=== PATIENT | female | born 1980 | race Caucasian/White ===

== ENCOUNTER 2017-07-16 14:03 | Emergency (ER) | payer MEDICAID ==
[~2017-07-16] VITALS: Ht 167.6 cm; Wt 104.4 kg
--- NOTE | 2017-07-16 15:09 | [facility] Report ---
History of Present Issue Date/Time Seen by Provider 07/16/17 1430 Visit Reason Pt arrived:Walked Presenting Problem:PT C/O DIZZINESS, LIGHTHEADED, AND DECREASE IN APPETITE X1 WEEK Location if Accident: Onset of symptoms date/time:/ or onset unknown for:MEDICAL HX UNKNOWN Have you (or family members/close friends) recently traveled outside the [place]? N If Yes, where/when: Have you had exposure to infectious disease within the past month? TB? Other? Specify: c/o feeling lightheaded/dizzy intermittently x 1 week w/ less of an appetite "but I make myself eat". Denies vomiting. Episodes occurring 3-4 times a day, lasting 5-10 minutes, worse w/ head movement or when rolls over in bed although has happened even when sitting still. Described as "room spinning and I need to hold on". Improved w/ sitting still until passes. Hasn't taken or tried anything for symptoms. Denies ear pain or fullness. No change hearing. mother and grandmother w/ hx of vertigo. Pt thinks she has had it before and this might be similiar but has never taken meclizine that she can recall. Source patient Exam Limitations no limitations ALLERGIES Coded Allergies: No Known Allergies (07/03/16) Home Medications Active Scripts ONDANSETRON HCL (Zofran 4MG Tab) 4 MG PO Q8HP PRN NAUSEA AND VOMITING #9 TAB Prov: 12/21/16 Naproxen 375 MG PO BID #28 TAB Prov: 01/09/17 History Medical History General CAD? No Angina: No [place]: No Hypertension? No Hyperlipidemia? No CHF? No DVT? No PE? No COPD? No Asthma? No Anemia? No GERD? No Gastric ulcers? No GI Bleed? No Hernia? No Thyroid Problems? No Hypothyroidism? No CVA? No Seizures? No Diabetes? No Insulin Dependent: No Insulin Pump: No Home FSBS? No Renal Insuffiency? No UTI? Yes Stones? No BPH? No GB Disease: No Nephritic Syndrome? No Asplenia? No Hepatitis? No Sickle Cell Disease? No Arthritis? No Migraines? No Cataracts? No Glaucoma? No MRSA? No HIV? No TB? No Anxiety? No Depression? No Cancer? No More? No Immunization HX DT/Tetanus 1-4 Years Ago Flu [id number] Pneumonia Received In Past Surgical Hx Previous Surgery?Y CSECTION FEBRUARY 2012 RT. FOOT SURGERY X2 TUBAL Family History Family HX Diabetes Yes CAD No Hypertension Yes Hyperlipidemia Yes Cancer Yes TB No Social History Smoking Hx Smoker: Never Smoker Tobacco: No Alcohol Alcohol: No Review of Systems All Other Systems Reviewed and Negative Constitutional see HPI, denies fever, denies malaise Eyes see HPI, denies blindness, denies pain, denies vision change ENT see HPI, nose discharge ("always"). denies: ear discharge, nose congestion, throat pain. Respiratory denies shortness of breath Cardiovascular denies chest pain, denies palpitations Gastrointestinal see HPI Musculoskeletal denies other (no pain) Skin denies change in color, denies lesions, denies lumps Psychiatric/Neurological denies headache, denies numbness, denies tingling Physical Exam Vital Signs Vital Signs Date Time Temp Pulse Resp B/P Pulse O2 O2 Flow FiO2 Ox Delivery Rate 07/16 1653 99.0 98 16 /68 99 07/16 1652 99.0 98 16 99 07/16 1454 99.0 98 16 99 General Appearance no apparent distress, obese, unkept appearance Eye Exam - bilateral eye normal exam (x/ vertigo w/ EOM) Comment resolved w/ sitting still within 2 minutes; no nystagmus Ear, Nose, Throat normal ENT inspection (x/ mild nasal congestion) Neck non-tender, supple Respiratory Status No: respiratory distress, productive cough, non productive cough. Lung Sounds anterior: lungs clear. posterior: lungs clear. bilateral: lungs clear. 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 No Departure Departure Time of Disposition 1621 Disposition DC Home or Self Care(routine) Clinical Impression Primary Impression: Vertigo Condition STABLE Referrals NO REFERRAL FU w/ Dr. Martin. Call today and schedule FU appt. Return to ER/UTC for new or worsening symptoms. Patient Instructions DI for Vertigo Additional Instructions meclizine as needed for vertigo that doesn't resolve w/in minutes of sitting still. Will cause drowsiness. No driving after taking. Move slowly. Change positions slowly. Be sure to FU with primary care but to return for new or worsening symptoms. Discharge Counseling Counseled pt/family regarding diagnosis, medications/RX, home care, follow up needs Prescriptions Current Visit Scripts MECLIZINE HCL (Meclizine 25MG) 25 MG PO TIDP PRN vertigo #9 TABLET at 3995
[2017-07-16 16:53] VITALS: BP 112/68
--- OUTSIDE RECORDS SUMMARY | 2017-08-08 04:08 | External Medical Summary Rpt ---
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 [facility] 74160 [facility]. 4 4 [facility] VISIT LOW/MODER SEVERITY PERIODIC 17520 ST JOSE GRE PREVENTIV 4 4 GEN[facility] E MED EST PATIENT PHYSICIAN 18-39 YRS [facility] ST[facility] - 3 3 [facility] OUTPATIEN [facility] EMERGENCY 81842 ST. 3 3 GENNA [facility] VISIT MODERATE SEVERITY HOSPITAL ST - 3 3 [facility] OUTPATIEN [facility] CENTER OFFICE 26200 ST SARAH OUTPATIEN 3 3 GENNA TRO T VISIT 25 PHYSICIAN MINUTES S OFFICE 04[address] ST JOSE GRE OUTPATIEN 3 3 [facility] T VISIT 15 PHYSICIAN MINUTES [facility] ST[facility] - 2 2 [facility] OUTPATIEN EBONIE OFFICE 16176 ST JOSE GRE OUTPATIEN 2 2 GEN[facility] T VISIT 25 PHYSICIAN MINUTES [facility] SHIV - 2 2 [facility] OUTPATIEN [facility] SHIV - 2 2 [facility] OFF[facility] 51903 [facility] HARPEL OUTPATIEN 2 2 [place] T VISIT [address]ES [address] SARAH OUTPATIEN 2 2 GENNA TRO T VISIT 25 PHYSICIAN MINUTES S INITIAL [address] [facility] HARPEL PREVENTIV 2 2 PHYSICIAN DARLING E GROUP MEDICINE PCC NEW PT AGE 18-39YRS [facility] ST - 2 2 GENNA OUTPATIEN T MEDICALCE NTER OFFICE 04589 ST OUTPATIEN 2 2 GENNA T VISIT 5 MINUTES MEDICALCE NTER OFFICE 40491 ST JOSE GRE OUTPATIEN 2 2 GEN[facility] T VISIT 15 PHYSICIAN [address] [facility] [address] - 2 2 [facility] INPATIENT MEDICALCE NTER OFFICE 71755 [facility] OUTPATI[facility] 2 2 POINT T VISIT FAMILY 15 CARE, IN MINUTES OFFICE 82476 ST JOSE GRE OUTPATIEN 2 2 GENNA T VISIT 15 PHYSICIAN MINUTES S OFFICE 85672 [facility] OUT[facility] 2 2 POINT T VISIT FAMILY 15 CARE, IN MINUTES OFFICE 70304 [facility] OUTPATIEN 2 2 POINT T VISIT FAMILY 15 CARE, IN MINUTES OFFICE 23753 [facility] OUTPATIEN 2 2 POINT T VISIT FAMILY 15 CARE, IN MINUTES OFFICE 46679 [facility] OUTPATIEN 2 2 POINT RASHMI T VISIT FAMILY 15 CARE, IN MINUTES OFFICE 81815 [facility] OUTPATIEN 2 2 POINT T VISIT FAMILY 15 CARE, IN MINUTES OFFICE 49061 [facility] OUTPATIEN 2 2 POINT T VISIT FAMILY 15 CARE, IN MINUTES HOSPITAL ST - 2 2 [facility] OUTPATIEN T MEDICALCE NTER OFFICE 32024 [facility] OUTPATIEN 1 1 POINT T VISIT FAMILY 25 CARE, IN MINUTES HOSPITAL ST - 1 1 [facility] OUTPATIEN MED CTR 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 1 1 [facility] DEPARTMEN EBONIE T VISIT HIGH/URGE NT SEVERITY EMERGENCY 97695 WANDA MUÑOZ 1 1 EDW EDW DEPARTMEN T VISIT MODERATE SEVERITY HOSPITAL ST. - 1 1 [facility] OUTPATIEN EBONIE T OFFICE 46465 ST JOSE MITCHELL OUTPATIEN 1 1 GEN[facility] T VISIT 15 PHYSICIAN MINUTES [facility] ST - 1 1 [facility] EDEPATIEN T MEDICALCE NTER EMERGENCY 88148 ST. 1 1 [facility] DEPARTMEN EBONIE T VISIT HIGH/URGE NT SEVERITY EMERGENCY 99714 [facility] DANAE DEPARTMEN MED CTR T VISIT MODERATE SEVERITY HOSPITAL ST. - 1 1 [facility] OUTPATIEN EBONIE T HOSPITAL ST. - 1 1 [facility] OUTPATIEN EBONIE T EMERGENCY 81753 ST. 1 1 [facility] DEPARTMEN EBONIE T VISIT MODERATE SEVERITY EMERGENCY 98874 ST BOYLE 1 1 [facility] PAULA DEPARTMEN MED CTR T VISIT HIGH/URGE NT SEVERITY EMERGENCY 96474 ST. 1 1 [facility] T VISIT MODERATE SEVERITY HOSPITAL ST[facility] - 1 1 [facility] T OFFICE 92101 [facility] [address] [facility] T VISIT 15 PHYSICIAN MINUTES S OFFICE 69240 [facility], OUTPATIEN 0 0 [facility] CHRISTY T T VISIT GROUP 15 MINUTES OFFICE 74424 [facility], OUTPATIEN 9 9 [facility] T T VISIT GROUP 15 MINUTES OFFICE 82667 [facility], OUTPATIEN 9 9 [facility] T T VISIT GROUP [address] - [address] [place] OFF[facility] 50992 [facility], [facility] 9 9 MEDICAL JHON T VISIT GROUP 15 MINUTES OFFICE 69213 [facility], OUTPATIEN 9 9 [facility]ST[facility] T T VISIT GROUP 15 MINUTES OFFICE 94283 [facility], OUTPATIEN 9 9 MEDICAL CHRISTY T T VISIT GROUP 15 MINUTES EMERGENCY 26665 [facility], 9 9 [place] [facility] MED CTR T VISIT HIGH/URGE NT SEVERITY EMERGENCY 08407 ST 9 9 [place] T VISIT MODERATE SEVERITY HOSPITAL ST - 9 9 [place] T [facility] 29298 [facility] 9 9 MEDICAL JHON T VISIT GROUP 25 MINUTES OFFICE 77440 [facility], OUTPATIEN 8 8 [facility]STY T T VISIT GROUP 15 MINUTES OFFICE 94688 [facility] OUTPATIEN 8 8 [facility] CHRISTY T T VISIT GROUP 15 MINUTES EMERGENCY [address]473 [place] [address] 8 [facility] HIGH/URGE NT SEVERITY EMERGENCY 02248 8 [address] [place] T VISIT MODERATE SEVERITY HOSPITAL ST 8 8 [place] T EMERGENCY 41353 8 [address] [place] T VISIT MODERATE SEVERITY EMERGENCY 23804 [place] [address] 8 [facility] MED CTR [facility] T VISIT E D HIGH/URGE NT SEVERITY HOSPITAL - 8 [address] [place] T
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
--- OUTSIDE RECORDS SUMMARY | 2017-08-08 04:11 | External Medical Summary Rpt ---
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 [facility] T VISIT MODERATE SEVERITY OFFICE 92107 [facility], OUTPATIEN 9 9 MEDICAL JHON T VISIT GROUP 25 MINUTES OFFICE 67304 [facility], OUTPATIEN 8 8 [facility] T T VISIT GROUP 15 MINUTES OFFICE 91634 [facility] 8 8 MEDICAL [facility]RISTY T T VISIT GROUP 15 MINUTES EMERGENCY 15031 8 8 [facility] T VISIT MODERATE [facility]VERITY [facility]PITAL ST - [address] [facility] T EMERGENCY 31[address] [facility], [address] [facility] MED CTR T VISIT HIGH/URGE NT SEVERITY HOSPITAL - [address] [facility] T EMERGENCY 60832 8 8 [facility] T VISIT MODERATE SEVERITY EMERGENCY 67721 [facility], 8 8 [facility] MED CTR NESTOR T VISIT E D HIGH/URGE NT SEVERITY
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
--- OUTSIDE RECORDS SUMMARY | 2017-08-08 04:12 | External Medical Summary Rpt ---
Demographics Preferred Language Burmese Marital Status Unknown Religion Affiliation Unknown Race Unknown Ethnic Group Unknown Author Author VENKAT Address Unknown Phone Immunization No patient found.
--- OUTSIDE RECORDS SUMMARY | 2017-08-08 04:12 | External Medical Summary Rpt ---
Author Author [place], [employer] Organization [employer] Address Unknown Phone Unavailable Results B.pert PCR Observa Value Referen Units Interpr Notes Date tion ce etation Range Bordete Positiv No No Abnorma TEST Dec 5 lla e informa informa l INFORMA 2016 pertuss tion in tion in TION: 2:07 PM is PCR source source This data data assay qualita tively detects a DNA element of Bordete lla pertuss is from nasal pharyng eal swabs. This assay may also detect Bordete lla holmesi i and Bordete lla brochis eptica. \.br\\. br\This assay is an FDA approve d amplifi ed DNA test by [facility] and its perform ance has been verifie d by the [facility]. A negativ e result does not rule out the presenc e of the Bordete lla pertuss is in concent rations below the limit of detecti on for the assay. POC UA Observa Value Referen Units Interpr Notes Date tion ce etation Range UA Yellow No No No No Aug 24 Color informa informa informa informa 2013 POC tion in tion in tion in tion in 9:35 AM source source source source data data data data UA Clear Clear No No No Aug 24 Appear informa informa informa 2013 POC tion in tion in tion in 9:35 AM source source source data data data UA Gluc Negativ Negativ No No No Aug 24 POC e e informa informa informa 2014 tion in tion in tion in 9:35 AM source source source data data data UA 2+ (40 Negativ No Abnorma No Aug 24 Ketones mg/dl) e informa l informa 2013 POC tion in tion in 9:35 AM source source data data UA Moderat Negativ No Abnorma No Aug 24 Blood e e informa l informa 2013 POC tion in tion in 9:35 AM source source data data UA pH 5.5 5.0 - No No No Sep 21 POC 8.0 informa informa informa 2013 tion in tion in tion in 9:35 AM source source source data data data UA 30 Negativ No Abnorma No Sep 21 Protein mg/dl e informa l informa 2013 POC tion in tion in 9:35 AM source source data data UA 0.2 <=1 No No No Sep 21 Urobili mg/dl mg/dl informa informa informa 2014 nogen tion in tion in tion in 9:35 AM POC source source source data data data UA Negativ Negativ No No No Sep 21 Nitrite e e informa informa informa 2013 POC tion in tion in tion in 9:35 AM source source source data data data UA Leuk Small Negativ No Abnorma No Sep 21 Est e informa l informa 2013 POC tion in tion in 9:35 AM source source data data UA SG >=1.030 1.001 - No No No Sep 21 POC 1.035 informa informa informa 2013 tion in tion in tion in 9:35 AM source source source data data data UA Observa Value Referen Units Interpr Notes Date tion ce etation Range UA Yellow No No No No Sep 21 Color informa informa informa informa 2013 tion in tion in tion in tion in 10:22 source source source source AM data data data data UA Slightl Clear No Abnorma No Sep 21 Appear y informa l informa 2013 Cloudy tion in tion in 10:22 source source AM data data UA Negativ Negativ No No No Sep 21 Glucose e e informa informa informa 2013 tion in tion in tion in 10:22 source source source AM data data data UA 2+ (40 Negativ No Abnorma No Sep 21 Ketones mg/dl) e informa l informa 2013 tion in tion in 10:22 source source AM data data UA Small Negativ No Abnorma No Sep 21 Blood e informa l informa 2013 tion in tion in 10:22 source source AM data data UA pH 6.0 5.0 - No No Referen Sep 21 8.0 informa informa ce 2013 tion in tion in range 10:22 source source valid AM data data for random specime ns only. UA 30 Negativ No Abnorma No Aug 24 Protein mg/dl e informa l informa 2013 tion in tion in 10:22 source source AM data data UA 0.2 <=1 No No No Aug 24 Urobili mg/dl mg/dl informa informa informa 2014 nogen tion in tion in tion in 10:22 source source source AM data data data UA Negativ Negativ No No No Aug 24 Nitrite e e informa informa informa 2014 tion in tion in tion in 10:22 source source source AM data data data UA Leuk Trace Negativ No Abnorma No Sep 21 Est e informa l informa 2013 tion in tion in 10:22 source source AM data data UA Spec >=1.030 No No No Referen Aug 24 Grav informa informa informa ce 2013 tion in tion in tion in range 10:22 source source source valid AM data data data for random specime ns only. UA WBC 10-20 No /HPF Abnorma No Sep 21 informa l informa 2014 tion in tion in 10:22 source source AM data data UA RBC 3-5 No /HPF Abnorma No Aug 24 informa l informa 2014 tion in tion in 10:22 source source AM data data UA 3-5 No /HPF No No Aug 24 Squam informa informa informa 2014 Epi tion in tion in tion in 10:22 source source source AM data data data UA Present No No No No Aug 24 Amorph informa informa informa informa 2014 tion in tion in tion in tion in 10:22 source source source source AM data data data data UA Few No /HPF Abnorma No Aug 24 Bacteri informa l informa 2014 a tion in tion in 10:22 source source AM data data Diff Observa Value Referen Units Interpr Notes Date tion ce etation Range RBC Microcy No No No No Aug 24 Morph tic informa informa informa informa 2014 tion in tion in tion in tion in 10:07 source source source source AM data data data data Aniso Slight No No No No Sep 21 informa informa informa informa 2014 tion in tion in tion in tion in 10:07 source source source source AM data data data data Polychr Slight No No No No Sep 21 om informa informa informa informa 2013 tion in tion in tion in tion in 10:07 source source source source AM data data data data Ovalocy Occasio No No No No Sep 21 te nal informa informa informa informa 2013 tion in tion in tion in tion in 10:07 source source source source AM data data data data Target Present No No No No Sep 21 Cell informa informa informa informa 2013 tion in tion in tion in tion in 10:07 source source source source AM data data data data Auto Diff Observa Value Referen Units Interpr Notes Date tion ce etation Range Neutrop 79.1 No % No No Sep 21 hils informa informa informa 2013 [#/volu tion in tion in tion in 10:07 me] in source source source AM Blood data data data by Automat ed count Lymphoc 9.6 No % No No Sep 21 ytes informa informa informa 2013 [#/volu tion in tion in tion in 10:07 me] in source source source AM Blood data data data by Automat ed count Monocyt 10.6 No % No No Sep 21 es informa informa informa 2013 [#/volu tion in tion in tion in 10:07 me] in source source source AM Blood data data data by Automat ed count Eos 0.1 No % No No Sep 21 Percent informa informa informa 2013 tion in tion in tion in 10:07 source source source AM data data data Baso 0.6 No % No No Sep 21 Percent informa informa informa 2013 tion in tion in tion in 10:07 source source source AM data data data Neut# 6.7 1.8 - x10(3)/ No No Sep 21 7.7 mcL informa informa 2013 tion in tion in 10:07 source source AM data data Lymph# 0.8 0.6 - x10(3)/ No No Sep 21 4.8 mcL informa informa 2013 tion in tion in 10:07 source source AM data data Wetzel# 0.9 0.0 - x10(3)/ No No Nov 24 1.3 mcL informa informa 2013 tion in tion in 10:07 source source AM data data Eos# 0.0 0.0 - x10(3)/ No No Aug 24 0.5 mcL informa informa 2013 tion in tion in 10:07 source source AM data data Baso# 0.1 0.0 - x10(3)/ No No Aug 24 0.2 mcL informa informa 2013 tion in tion in 10:07 source source AM data data HCG Qual Observa Value Referen Units Interpr Notes Date tion ce etation Range HCG Negativ No No No No Sep 21 QUAL e informa informa informa informa 2014 tion in tion in tion in tion in 9:55 AM source source source source data data data data CBC Observa Value Referen Units Interpr Notes Date tion ce etation Range LEUKOCY 8.5 4.0 - x10(3)/ No No Aug 24 JONELLE 11.0 mcL informa informa 2013 tion in tion in 9:44 AM source source data data Erythro 5.31 3.80 - x10(6)/ High No Sep 21 cytes 5.10 mcL informa 2013 [#/volu tion in 9:44 AM me] in source Blood data by Automat ed count Hemoglo 11.1 12.0 - gm/dL Low No Sep 21 bin 15.6 informa 2013 [Mass/v tion in 9:44 AM olume] source in data Blood Hematoc 35.7 35.7 - % No No Sep 21 rit 45.9 informa informa 2013 [Volume tion in tion in 9:44 AM source source Fractio data data n] of Blood by Automat ed count Erythro 67.3 82.5 - fL Low No Sep 21 cyte 99.8 informa 2013 mean tion in 9:44 AM corpusc source ular data volume [Entiti c volume] by Automat ed count Erythro 20.9 27.0 - pg Low No Sep 21 cyte 34.3 informa 2013 mean tion in 9:44 AM corpusc source ular data hemoglo bin [Entiti c mass] by Automat ed count Erythro 31.0 32.1 - gm/dL Low No Sep 21 cyte 35.3 informa 2013 mean tion in 9:44 AM corpusc source ular data hemoglo bin concent ration [Mass/v olume] by Automat ed count Erythro 19.2 11.5 - % High No Sep 21 cyte 15.0 informa 2013 distrib tion in 9:44 AM ution source width data [Ratio] by Automat ed count Platele 477 144 - x10(3)/ High No Sep 21 ts 423 mcL informa 2013 [#/volu tion in 9:44 AM me] in source Blood data by Automat ed count MPV 7.7 6.8 - fL No Sep 21 10.8 informa informa 2013 tion in tion in 9:44 AM source source data data Auto Diff Observa Value Referen Units Interpr Notes Date tion ce etation Range Neutrop 56.9 No % No No Aug 11 hils informa informa informa 2013 [#/volu tion in tion in tion in 12:45 me] in source source source AM Blood data data data by Automat ed count Lymphoc 33.6 No % No No Sep 08 ytes informa informa informa 2013 [#/volu tion in tion in tion in 12:45 me] in source source source AM Blood data data data by Automat ed count Monocyt 7.3 No % No No Sep 08 es informa informa informa 2013 [#/volu tion in tion in tion in 12:45 me] in source source source AM Blood data data data by Automat ed count Eos 1.3 No % No No Aug 11 Percent informa informa informa 2013 tion in tion in tion in 12:45 source source source AM data data data Baso 0.9 No % No No Aug 11 Percent informa informa informa 2013 tion in tion in tion in 12:45 source source source AM data data data Neut# 6.8 1.8 - x10(3)/ No No Aug 11 7.7 mcL informa informa 2013 tion in tion in 12:45 source source AM data data Lymph# 4.0 0.6 - x10(3)/ No No Aug 11 4.8 mcL informa informa 2013 tion in tion in 12:45 source source AM data data Wetzel# 0.9 0.0 - x10(3)/ No No Aug 11 1.3 mcL informa informa 2013 tion in tion in 12:45 source source AM data data Eos# 0.2 0.0 - x10(3)/ No No Aug 11 0.5 mcL informa informa 2013 tion in tion in 12:45 source source AM data data Baso# 0.1 0.0 - x10(3)/ No No Aug 11 0.2 mcL informa informa 2013 tion in tion in 12:45 source source AM data data Diff Observa Value Referen Units Interpr Notes Date tion ce etation Range RBC Microcy No No No No Sep 08 Morph tic informa informa informa informa 2014 tion in tion in tion in tion in 12:45 source source source source AM data data data data Aniso Slight No No No No Sep 08 informa informa informa informa 2014 tion in tion in tion in tion in 12:45 source source source source AM data data data data Polychr Slight No No No No Sep 08 om informa informa informa informa 2014 tion in tion in tion in tion in 12:45 source source source source AM data data data data Microcy Occasio No No No No Sep 08 te nal informa informa informa informa 2014 tion in tion in tion in tion in 12:45 source source source source AM data data data data Macrocy Occasio No No No No Sep 08 te nal informa informa informa informa 2014 tion in tion in tion in tion in 12:45 source source source source AM data data data data CBC Observa Value Referen Units Interpr Notes Date tion ce etation Range LEUKOCY 11.9 4.0 - x10(3)/ High No Sep 08 JONELLE 11.0 mcL informa 2013 tion in 12:15 source AM data Erythro 5.01 3.80 - x10(6)/ No No Sep 08 cytes 5.10 mcL informa informa 2013 [#/volu tion in tion in 12:15 me] in source source AM Blood data data by Automat ed count Hemoglo 10.0 12.0 - gm/dL Low No Sep 08 bin 15.6 informa 2013 [Mass/v tion in 12:15 olume] source AM in data Blood Hematoc 33.4 35.7 - % Low No Sep 08 rit 45.9 informa 2013 [Volume tion in 12:15 source AM Fractio data n] of Blood by Automat ed count Erythro 66.7 82.5 - fL Low No Sep 08 cyte 99.8 informa 2013 mean tion in 12:15 corpusc source AM ular data volume [Entiti c volume] by Automat ed count Erythro 20.0 27.0 - pg Low No Sep 08 cyte 34.3 informa 2013 mean tion in 12:15 corpusc source AM ular data hemoglo bin [Entiti c mass] by Automat ed count Erythro 30.0 32.1 - gm/dL Low No Sep 08 cyte 35.3 informa 2013 mean tion in 12:15 corpusc source AM ular data hemoglo bin concent ration [Mass/v olume] by Automat ed count Erythro 19.0 11.5 - % High Sep 08 cyte 15.0 informa 2013 distrib tion in 12:15 ution source AM width data [Ratio] by Automat ed count Platele 389 144 - x10(3)/ No No Sep 08 ts 423 mcL informa informa 2013 [#/volu tion in tion in 12:15 me] in source source AM Blood data data by Automat ed count MPV 7.4 6.8 - fL No No Sep 08 10.8 informa informa 2013 tion in tion in 12:15 source source AM data data EK EKG 12 LEAD Observa Value Referen Units Interpr Notes Date tion ce etation Range Station No No No No Sep 07 cherri ECG informa informa informa informa 2013 tion in tion in tion in tion in 11:41 Study\. source source source source PM br\St. data data data data Elizabe th Florenc e\.br\I nterpre tive Stateme nts\.br \Sinus rhythm\ .br\Nor mal ECG\.br \Electr onicall y Signed On 2014-08 22:28:2 3 EST by Artem Tam MD XR CHEST PA AND LATERAL Observa Value Referen Units Interpr Notes Date tion ce etation Range XR No No No No Sep 07 CHEST informa informa informa informa 2013 PA AND tion in tion in tion in tion in 10:44 LATERAL source source source source PM \.br\11 data data data data / 4 at 2230 hours\. br\Clin ical: 34-year -old female. Cough\. br\Comp are: November 10, 2008\.b r\\.br\ Lungs are clear. Heart and mediast inum appear normal. \.br\\. br\IMPR ESSION: No radiogr aphic evidenc e of active cardiac or pulmona ry\.br\ disease process . STRP A DNA Results Observa Value Referen Units Interpr Notes Date tion ce etation Range Group A Throat No No No No Aug 11 informa informa informa informa 2013 Strepto tion in tion in tion in tion in 2:32 PM coccus source source source source specime data data data data n Group A Negativ No No No No Aug 11 e informa informa informa informa 2013 Strepto tion in tion in tion in tion in 2:32 PM coccus source source source source DNA data data data data Group A Negativ No No No No Aug 11 e for informa informa informa informa 2013 Strepto Group A tion in tion in tion in tion in 2:32 PM coccus source source source source Interp Strepto data data data data coccus DNA. A negativ e result does not rule out the presenc e of Group A Strepto coccus DNA in concent rations below the level of detecti on by the assay.T est methodo logy by DNA probe. The perform ance charact eristic s of this test were validat ed by [facility] are Laborat ory. This laborat ory is authori steffd under the Clinica l Laborat ory Improve ment Amendme nts (CLIA) as qualifi ed to perform high-co mplexit y testing . Complia nce stateme nt is availab le in the Laborat ory. Group A Negativ No No No No Aug 11 e informa informa informa informa 2013 Strepto tion in tion in tion in tion in 2:32 PM coccus source source source source Interp data data data data Strep Scn Observa Value Referen Units Interpr Notes Date tion ce etation Range Strep Negativ No No No No Aug 10 Screen e informa informa informa informa 2013 ti in ti in tion in ti in 9:01 PM source source source source data data data data VA US LOWER EXTREMITY VENOUS LEFT Observa Value Referen Units Interpr Notes Date ti ce etation Range This No No No No May 25 patient informa informa informa informa 2013 in ti in ti in in 2:30 PM receive source source source source d an data data data data examina tion at the [facility] are Vascula r Laborat ory.\.b r\The complet e report can be found in the [facility] ([facility]) [employer] Medical Record of the patient . CT ABDOMEN PELVIS W CONTRAST Observa Value Referen Units Interpr Notes Date ti ce etation Range TEXT CT No No No No Aug 26 DIAGNOS ABDOMEN informa informa informa informa 2011 IS /PELVIS ti in in in in 11:15 BATTERY WITH source source source source AM CONTRAS data data data data T (ADDITI ONAL THIN RECONST RUCTION S) -2011HIS TORY: Recurre nt abdomin al pelvic pain. Prior cesarea n section . Nocompa rison CT studies .Direct 5 mm axial imaging after adminis tration of oral and 75 mL Isovue3 70 intrave nously. Additio nal MIP and multipl keshawn reconst ruction images reviewe d separat lisa.Vis ualized lung basesar e clear. No focal pleural effusio n. No focal abnorma lity of the spleen, adrenal s, pancrea sand gallbla dder. Tiny hepatic cyst involve s the left lobe of the liver,i mage 21. The kidneys symmetr ically functio n without evidenc e of obstruc tive uropath y.PELVI S: Small bilater al benign- appeari ng ovarian follicl es. The uterus isantev erted andslig htly enlarge d. No focal free pelvic fluid collect ion. Post cesarea nscar of the loweran terior abdomin al pelvic wall. No focal postsur gical hematom a orinfla mmatory changea pprecia kristian.IMP RESSION : Nonobst ructive bowel gas pattern . No focal abdomin al, pelvico r inflamm atorypr ocess. Please see above detaile d discuss ion. XR ABDOMEN AP Observa Value Referen Units Interpr Notes Date tion ce etation Range TEXT AP No No No No March 23 DIAGNOS abdomin informa informa informa informa 2011 IS al tion in tion in tion in tion in 11:48 BATTERY film02/27 source source source source PM 03/2012C data data data data LINICAL HISTORY : rule out foreign bodyFin dings ;Study is perform ed after emergen t C-secti on to rule out foreign body.Ve rticall y oriente dstaple s are seen over the lower abdomen and pelvis. No evidenc e ofmetal lic foreign body orspong e. Enlarge d uterus and noted in this postpar divya patient .IMPRES ASHLEY:No foreign body.
--- OUTSIDE RECORDS SUMMARY | 2017-08-08 04:12 | External Medical Summary Rpt ---
[...] approve d amplifi ed DNA test by [employer] [facility] and its perform ance has been verifie d by the [facility]. A negativ e result does not rule [...] in 10:07 source source AM data data [place]# 0.9 0.0 - x10(3)/ No No Nov [...] in 12:45 source source AM data data [place]# 0.9 0.0 - x10(3)/ No No Aug [...] of this test were validat ed by [facility] are Laborat ory. This laborat ory [...] data data data examina tion at the [facility] are Vascula r Laborat ory.\.b r\The complet e report can be found in the [facility] ([facility]) [employer] Medical Record of the patient [...] gical hematom a orinfla mmatory changea pprecia kritsian.IMP RESSION : Nonobst ructive bowel gas pattern [...]
--- OUTSIDE RECORDS SUMMARY | 2017-08-08 04:12 | External Medical Summary Rpt ---
Demographics Preferred Language Cape Verdean Marital Status Unknown Jewish Affiliation Unknown Race Unknown Ethnic Group Unknown Author Author VENKAT Address Unknown Phone Immunization No patient found.
== END 2017-07-16 16:53 | disposition home or self-care (01) ==
LOC: UTC 14:03
DX: R42 Dizziness and giddiness (principal)

== ENCOUNTER 2017-09-14 10:32 | Emergency (ER) | payer MEDICAID ==
[~2017-09-14] VITALS: Ht 167.6 cm; Wt 104.8 kg
[~2017-09-14 10:32] MED LIST: ETODOLAC400 MG PO; MECLIZINE 25MG25 MG PO; NAPROXEN375 M1 PO; PYRIDIUM 200MG200 MG PO; SEPTRA DS 800 M1 TAB PO; ZOFRAN4 MG PO
--- OUTSIDE RECORDS SUMMARY | 2017-09-14 10:37 | External Medical Summary Rpt | CCD ---
Author Author DILIA Address Unknown Phone [email or web address] Purpose Continuity of Care Document - 03-23-2012 through 2016
--- OUTSIDE RECORDS SUMMARY | 2017-09-14 10:37 | External Medical Summary Rpt | CCD ---
Demographics Preferred Language Korean Marital Status Unknown Quaker Affiliation Unknown Race Unknown Ethnic Group Unknown Author Author , DILIA DOBBS Address Unknown Phone Immunization No patient found.
--- OUTSIDE RECORDS SUMMARY | 2017-09-14 10:37 | External Medical Summary Rpt | CCD ---
Author Author [employer] Organization [employer] Address Unknown Phone Unavailable Purpose Continuity of Care Document - through 2016
--- OUTSIDE RECORDS SUMMARY | 2017-09-14 10:37 | External Medical Summary Rpt | CCD ---
Author Author DILIA Address Unknown Phone [email or web address] Purpose Continuity of Care Document - 03-23-2012 through 2016
--- OUTSIDE RECORDS SUMMARY | 2017-09-14 10:37 | External Medical Summary Rpt | CCD ---
Demographics Preferred Language Azeri Marital Status Unknown Mandaen Affiliation Unknown Race Unknown Ethnic Group Unknown Author Author , DILIA DOBBS Address Unknown Phone Immunization No patient found.
--- OUTSIDE RECORDS SUMMARY | 2017-09-14 10:38 | External Medical Summary Rpt ---
[...] approve d amplifi ed DNA test by [employer] [facility] and its perform ance has been verifie d by the [facility]. A negativ e result does not [...] in 10:07 source source AM data data [place]# 0.9 0.0 - x10(3)/ No No Nov [...] in 12:45 source source AM data data [place]# 0.9 0.0 - x10(3)/ No No Aug [...] of this test were validat ed by [facility] are Laborat ory. This laborat ory is [...] data data data examina tion at the [facility] are Vascula r Laborat ory.\.b r\The complet e report can be found in the [facility] ([facility]) [employer] Medical Record [...]
--- OUTSIDE RECORDS SUMMARY | 2017-09-14 10:38 | External Medical Summary Rpt ---
[...] approve d amplifi ed DNA test by [employer] [facility] and its perform ance has been verifie d by the [facility]. A negativ e result does not [...] in 10:07 source source AM data data [place]# 0.9 0.0 - x10(3)/ No No Nov [...] in 12:45 source source AM data data [place]# 0.9 0.0 - x10(3)/ No No Aug [...] of this test were validat ed by [facility] are Laborat ory. This laborat ory [...] data data data examina tion at the [facility] are Vascula r Laborat ory.\.b r\The complet e report can be found in the [facility] ([facility]) [employer] Medical Record of [...]
[2017-09-14] MEDS ORDERED: BROMFED DM COU118 ML PO (11:42)
[2017-09-14] MEDS ORDERED: FLONASE 50 MCG16 GM (11:42)
--- NOTE | 2017-09-14 11:43 | [facility] Report ---
History of Present Issue Date/Time Seen by Provider 09/14/17 1132 Visit Reason Pt arrived:Walked Presenting Problem:PT C/O COUGH AND CONGESTION FOR 1 WEEK Location if Accident: Onset of symptoms date/time:/ or onset unknown for:MEDICAL HX UNKNOWN Have you (or family members/close friends) recently traveled outside the [place]? N If Yes, where/when: Have you had exposure to infectious disease within the past month? TB? Other? Specify: Mother state that she has had bad cough now for over a week that has not improved State that all of her children have had the same cough State that she had to bring them in today to get checked so she decided to get checked too. State that she has not taken anything over the counter for it state that she though it would just go away ALLERGIES Coded Allergies: No Known Allergies (07/03/16) Home Medications Active Scripts ONDANSETRON HCL (Zofran 4MG Tab) 4 MG PO Q8HP PRN NAUSEA AND VOMITING #9 TAB Prov: 12/21/16 Naproxen 375 MG PO BID #28 TAB Prov: 01/09/17 MECLIZINE HCL (Meclizine 25MG) 25 MG PO TIDP PRN vertigo #9 TABLET Prov: 07/16/17 History Medical History General CAD? No Angina: No [place]: No Hypertension? No Hyperlipidemia? No CHF? No DVT? No PE? No COPD? No Asthma? No Anemia? No GERD? No Gastric ulcers? No GI Bleed? No Hernia? No Thyroid Problems? No Hypothyroidism? No CVA? No Seizures? No Diabetes? No Insulin Dependent: No Insulin Pump: No Home FSBS? No Renal Insuffiency? No UTI? Yes Stones? No BPH? No GB Disease: No Nephritic Syndrome? No Asplenia? No Hepatitis? No Sickle Cell Disease? No Arthritis? No Migraines? No Cataracts? No Glaucoma? No MRSA? No HIV? No TB? No Anxiety? No Depression? No Cancer? No More? No Immunization HX DT/Tetanus 1-4 Years Ago Flu [id number] Pneumonia Received In Past Surgical Hx Previous Surgery?Y CSECTION FEBRUARY 2012 RT. FOOT SURGERY X2 TUBAL Family History Family HX Diabetes Yes CAD No Hypertension Yes Hyperlipidemia Yes Cancer Yes TB No Social History Smoking Hx Smoker: Never Smoker Tobacco: No Alcohol Alcohol: No Review of Systems All Other Systems Reviewed and Negative Respiratory cough, denies shortness of breath, denies wheezing Gastrointestinal denies no symptoms reported Physical Exam Vital Signs Vital Signs Date Time Temp Pulse Resp B/P Pulse O2 O2 Flow FiO2 Ox Delivery Rate 09/14 1102 98.1 78 18 107/62 96 General Appearance normal appearance, WD/WN, no apparent distress Ear, Nose, Throat throat red irritate no swelling no exudate Respiratory Status Yes: trachea midline, chest symmetrical, non tender chest. No: respiratory distress. Cardiovascular normal exam, regular rate/rhythm, no peripheral edema Neurologic alert, normal exam, oriented x 3 Medical Decision Making LABS/Meds/Orders Pt receiving controlled substance in ED? No Departure Departure Time of Disposition 1142 Disposition DC Home or Self Care(routine) Clinical Impression Primary Impression: Cough Condition STABLE Referrals ROMULO AGARWAL (Family) Patient Instructions Cough, DI for Cough -- Adult Additional Instructions * Monitor Temp. Tylenol and/or Ibuprofen as needed. ER if fever is no less than 101 despite alternating Tylenol and Ibuprofen * Encourage fluids, water, Gatorade, powerade, pedialyte if /toddler/or child * Warm salt water gargles for throat irritation *Warm fluids *Sore throat lozenges *Sleep elevated *humidifier or vaporizer Lots of rest Increase fluids, water, Gatorade, powerade *Flonase 2 sprays each nostril daily but may take 2-3 days to notice improvement with it *Bromfed may cause drowsiness. Know how it effect you or your child. Before driving, caring for small children or sending your child to school *Your throat swab was sent to lab for culture. Those results area typically sent to your primary care physician. Be sure to follow up in 2-3 days if no improvement so they can review those results and treat if necessary If you dont have primary care I recommend you get one, but in the mean time you will have to return to a walk in clinic Follow up IMMEDIATELY for new or worsening of symptoms OR no noticeable improvement over the next 48-72 hours. 911 immediately for any life threatening symptoms such as chest pain or difficulty breathing Discharge Counseling Counseled pt/family regarding diagnosis, medications/RX, home care, follow up needs Prescriptions Current Visit Scripts D-METHORPHAN HB/P-EPD HCL/BPM (Bromfed Dm Cough Syrup) 10 ML PO Q4HP PRN cough #150 SYR Fluticasone Propionate (Flonase 50 Mcg Nasal [place]) 2 SPRAY NA DAILY #1 BOT at 1146
[2017-09-14 11:54] VITALS: BP 107/62
== END 2017-09-14 11:54 | disposition home or self-care (01) ==
LOC: UTC 10:32
DX: R05 Cough (principal)